=== PATIENT | female | born 1955 | race Caucasian/White ===

== ENCOUNTER 2016-04-15 08:11 | Emergency (ER) | payer OTHER ==
[~2016-04-15] VITALS: Ht 172.7 cm; Wt 70.5 kg
[~2016-04-15 08:11] MED LIST: Aspirin PO; METO25TA3 PO; MULT-82 PO
[2016-04-15 08:13] VITALS: BP 152/92; PULSE 62; RESP 14; O2SAT 100
--- NOTE | 2016-04-15 08:23 | ED.REPORT ---
HPI-Chest Pain 40 and Over Date of Service Apr 15, 2016 ED Provider: Jose Hensley DO The patient is a 61 year old female with history of stress-induced cardiomyopathy, coronary artery disease, NSTEMI, who presents to the emergency department complaining of chest pressure that began earlier this morning. She took her metoprolol with her breakfast at 0630 and then later developed chest pressure. The pain radiated through to her back and into her left shoulder. The pain improved and then within 30 minutes the pain started again. She has also noticed belching and anxiety. Her symptoms are not exacerbated with exertion. She had similar symptoms in the past, was hospitalized for 4 days, and discharged home on Metoprolol. 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 Nursing Notes Stated Complaint: CHEST PAIN PRESSURE Chief Complaint: Chest Pain Nursing Notes Reviewed: Yes Allergies: Coded Allergies: bee venom (honey bee) (Unverified Allergy, Severe, Anaphylaxis, 09/07/14) erythromycin base (Unverified Allergy, Severe, toxic bowel syndrome, ) cocoa (Unverified Allergy, Intermediate, Hives, 09/07/14) epinephrine (Unverified Allergy, Intermediate, "the doctor told me it would make me sick", 09/07/14) possibly the novocaine ingredient that causes hives and amnesia procaine (Unverified Allergy, Intermediate, hives, amnesia, 09/07/14) vasopressin (Unverified Allergy, Intermediate, Hives, amnesia, 09/07/14) Penicillins (Verified Allergy, Mild, 09/07/14) azithromycin (Verified Allergy, Mild, 07/18/14) sulfamethoxazole (Verified Allergy, Mild, 09/07/14) trimethoprim (Verified Allergy, Mild, 09/07/14) Scheduled ([Aspirin]) 81 MG TAB.CHEW 81 MG PO DAILY Metoprolol Succinate ER (Toprol XL) 25 Mg Tablet.er 25 MG PO BID Multivit with Calcium,Iron,Min (Multiple Vitamins For Women) 1 Each Tablet 1 EACH PO DAILY General Time Seen by MD: 08:22 Chief Complaint Chest pain Hx Obtained From: Patient Arrived By: Walk-in Sudden in Onset?: Yes Onset Occurred: 1 - 4 hours ago Symptom Duration: Since onset Location: : Substernal Quality: Painful, Pressure Radiation: : Back: Shoulder left Migration/Movement: Reports: None Severity: Current: Moderate Severity: Maximum: Moderate Recent Healthcare: No recent doctor visit, No recent hospitalization Similar Sx Previous: Yes Past Medical History Past Medical History History of stress-induced cardiomyopathy, coronary artery disease, NSTEMI, Past Surgical History 1. Left meniscal surgery on her left knee when she was 17 years old. 2. Hysterectomy 20 years ago. 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 Alcohol Use: Denies alcohol use Drug Use: Denies drug use Other Social History: , Local resident Ambulatory Status Independent Review of Systems Respiratory: Denies: Dyspnea on exertion Cardiovascular: Reports: Chest pain Musculoskeletal: Reports: Back pain, Joint pain Psychiatric: Reports: Anxiety, Stress Complete sys rev & neg: except as marked. Physical Exam Initial Vital Signs Vital Signs (First) Date Time Temp Pulse Resp B/P Pulse Ox O2 Delivery O2 Flow Rate FiO2 04/15/16 08:13 37.2 62 14 152/92 100 Room Air Initial VS: Reviewed Head / Eyes: Atraumatic, Normocephalic, PERRL ENT: Mucous membranes moist, Conjunctiva normal, No scleral icterus Neck: Supple, Non-tender, Full range of motion Extremities: Vascular intact, Neuro intact, No swelling, No tenderness Skin: Warm, Dry, No cyanosis Neurologic: Alert, Oriented, Nonfocal Psychiatric: Mood/affect normal, Behavior normal, Normal thought content General/Constitutional: Awake, Alert, No acute distress, Well appearing Behavior: Positive: Anxious Respiratory / Chest: Atraumatic, Breath sounds NL, Breath sounds = bilat, No respiratory distress, No rales, No rhonchi, No wheezing, No stridor, No chest tenderness Cardiovascular: Heart rate NL, Regular rhythm, Heart sounds NL, No murmurs, Peripheral circulation NL, Pulses = bilaterally, No gross BP differential Abdomen: Atraumatic, Soft, Non-tender, McBurney's non-tender, No guarding, No rebound, BS normoactive, No distention, No hernia, No palpable mass Interpretation & Diagnostics Lab Results Interpretation Result Diagram: 04/15/16 0820 04/15/16 0820 Test 04/15/16 08:20 04/15/16 10:18 White Blood Count 5.0th/mm3 (3.8-10.1) Red Blood Count 4.89mil/mm3 (3.90-5.20) Hemoglobin 14.0g/dL (12.0-15.6) Hematocrit 42.5% (35.0-46.0) Mean Corpuscular Volume 86.9fL (81-100) Mean Corpuscular Hemoglobin 28.6pg (27.0-35.0) Mean Corpuscular Hemoglobin Concent 32.9% (32.0-37.0) Red Cell Distribution Width 13.1% (12.3-15.4) Platelet Count 239bil/L (150-400) Neutrophils (%) (Auto) 61.4% (40-74) Lymphocytes (%) (Auto) 28.8% (14-46) Monocytes (%) (Auto) 6.8% (4-12) Eosinophils (%) (Auto) 2.6% (0-5) Basophils (%) (Auto) 0.2% (0-3) Sodium Level 139mEq/L (134-144) Potassium Level 4.0mEq/L (3.5-5.2) Chloride Level 102mEq/L (97-108) Carbon Dioxide Level 25mmol/L (18-29) Blood Urea Nitrogen 15mg/dL (8-27) Creatinine 0.70mg/dL (0.57-1.00) Estimat Glomerular Filtration Rate 121mL/min (>59) Glucose Level 126mg/dL (60-99) Calcium Level 8.9mg/dL (8.5-10.1) Magnesium Level 1.9mg/dL (1.6-2.6) Total Bilirubin 0.3mg/dL (0.0-1.2) Aspartate Amino Transf (AST/SGOT) 17U/L (0-50) Alanine Aminotransferase (ALT/SGPT) 10U/L (0-32) Alkaline Phosphatase 73U/L (25-165) Total Protein 7.4g/dL (6.4-8.4) Albumin 4.2g/dL (3.4-5.0) Troponin T < 0.010ug/L (0.0-0.011) ECG Interpretation ECG Interpretation: Sinus rhythm with a rate of 59 Probable LVH Time: 08:29 Interpreted by: ED physician ECG Interpretation: Sinus bradycardia with a rate of 46 LVH Time: 11:08 Interpreted by: ED physician X-Ray Chest Interpretation Chest Xray Interpretation: IMPRESSION: No acute process. Dictated by: Monster Powell M.D. on 04/15/2016 at 8:43 Interpretation / Wet Read by: Interpret - Radiologist Re-Eval/Medical Decision Med Decision/Clinical Course EKGs and serial troponins unremarkable, pain resolved. This does not seem to be acute TX. Patient feeling better. She is reassured by the workup. Will follow up with cardiology or return to the ER with recurrent symptoms. Source of Hx: Old records Time of Eval: 09:31 Re-Evaluation/Progress Note: Rechecked the patient. Discussed plan for repeat troponin. Time of Eval: 11:22 Re-Evaluation/Progress Note: Discussed repeat troponin results, diagnosis, and plan for discharge. All questions were addressed. Counseled Regarding: Diagnosis, Lab results, Need for follow-up, When/why to return to ED Discharge & Departure Primary Impression: Chest pain Chest pain type: unspecified Qualified Code: R07.9 - Chest pain, unspecified Disposition: Home Discharge Condition All VS Reviewed: Yes Condition: Stable Additional Instructions: Thank you for entrusting us with your care today. Your labs, EKG, and chest x- ray today are reassuring. There is no sign of a heart attack or pneumonia. You should followup with your regular doctor in the next few days for re- evaluation. Return to the emergency department for any new or concerning symptoms, Referrals: Monika St (PCP) Scribe Attestation Portions of this note were transcribed by Angelina Miller. I, Dr. Hensley personally performed the history, physical exam and medical decision-making; I reviewed and confirmed the accuracy of the information in the transcribed note. Signed by: Mirna Sullivan, 04/15/2016 at 1135. copies to: Monika St Timothy S DO Apr 15, 2016 08:23 Angelina Miller Apr 15, 2016 08:30
[2016-04-15 08:26] VITALS: BP 162/88; PULSE 60; RESP 21; O2SAT 100
[2016-04-15 08:33] LABS: BASOPHILS % (AUTO) 0.2 % (0-3); EOSINOPHILS % (AUTO) 2.6 % (0-5); MONOCYTES % (AUTO) 6.8 % (4-12); Mean Corpuscular Hemoglobin 28.6 pg (27.0-35.0); Mean Corpuscular Volume 86.9 fL (81-100); NEUTROPHILS % (AUTO) 61.4 % (40-74); Platelet Count 239 bil/L (150-400)
--- NOTE | 2016-04-15 08:45 | DRSVH ---
PROCEDURE: X-RAY CHEST ONE VIEW, PORTABLE ([id number]) INDICATIONS: CHEST PAIN TECHNIQUE: One view of the chest was acquired. COMPARISON: [facility], , CHEST 1VW (PORTABLE), 09/07/2014, 7:47. FINDINGS: Surgical changes and devices: None. Lungs and pleura: No pleural effusions or pneumothorax. Lungs are clear. Mediastinum: Mediastinal contours appear normal. Heart size is normal. Bones and chest wall: No suspicious bony lesions. Overlying soft tissues appear unremarkable. IMPRESSION: No acute process. Dictated by: Monster Powell M.D. on 04/15/2016 at 8:43 Approved by: Monster Powell M.D. on 04/15/2016 at 8:43
[2016-04-15] MEDS ORDERED: Alum-Mag Hydrox-Simeth 30 mL Suspension PO ONE (08:50)
[2016-04-15 09:11] LABS: Magnesium 1.9 mg/dL (1.6-2.6); TROPONIN T < 0.010 ug/L (0.0-0.011)
[2016-04-15 09:27] VITALS: BP 154/92; PULSE 52; RESP 19
[2016-04-15 12:06] VITALS: BP 115/65; PULSE 55; RESP 16; O2SAT 98
== END 2016-04-15 11:30 | disposition home or self-care (01) ==
LOC: SED 08:11
DX: R07.89 Other chest pain (principal); F41.9 Anxiety disorder, unspecified; R14.2 Eructation; I25.10 Atherosclerotic heart disease of native coronary artery without angina pectoris; I51.81 Takotsubo syndrome; I25.2 Old myocardial infarction; Z79.82 Long term (current) use of aspirin; Z88.0 Allergy status to penicillin; Z88.1 Allergy status to other antibiotic agents; Z88.8 Allergy status to other drugs, medicaments and biological substances; Z91.030 Bee allergy status; Z91.02 Food additives allergy status

== ENCOUNTER 2016-08-10 01:48 | Emergency (ER) | payer OTHER ==
[~2016-08-10] VITALS: Ht 172.7 cm; Wt 68.2 kg
[2016-08-10 01:50] VITALS: BP 136/89; PULSE 75; RESP 18; O2SAT 95
--- NOTE | 2016-08-10 02:08 | ED.REPORT ---
HPI-General Illness Date of Service August 10, 2016 ED Provider: Dr. Josue Pt is a 61 year old female who presents to the ED with concerns for a fever, severe diarrhea and coughing that started several says ago. Pt reports that she noticed this all beginning after she was exposed to barbecue smoke. She states a multitude of complaints consisting of diarrhea, cough, headache, dizziness, sneezing and fever. She has been taking DayQuil and Tylenol without any alleviation of her symptoms. She denies any chest pain, shortness of breath or history of a similar presentation. Nursing Notes Stated Complaint: FEVER Chief Complaint: Respiratory Complaints Nursing Notes Reviewed: Yes Allergies: Coded Allergies: erythromycin base (Unverified Allergy, Severe, toxic bowel syndrome, ) venom-honey bee (Unverified Allergy, Severe, Anaphylaxis, 09/07/14) cocoa (Unverified Allergy, Intermediate, Hives, 09/07/14) epinephrine (Unverified Allergy, Intermediate, "the doctor told me it would make me sick", 09/07/14) possibly the novocaine ingredient that causes hives and amnesia procaine (Unverified Allergy, Intermediate, hives, amnesia, 09/07/14) vasopressin (Unverified Allergy, Intermediate, Hives, amnesia, 09/07/14) Penicillins (Verified Allergy, Mild, 09/07/14) azithromycin (Verified Allergy, Mild, 07/18/14) sulfamethoxazole (Verified Allergy, Mild, 09/07/14) trimethoprim (Verified Allergy, Mild, 09/07/14) Uncoded Allergies: PENICILLIN (Allergy, Unknown, 08/10/16) Scheduled ([Aspirin]) 81 MG TAB.CHEW 81 MG PO DAILY Metoprolol Succinate ER (Toprol XL) 25 Mg Tablet.er 25 MG PO BID Multivit with Calcium,Iron,Min (Multiple Vitamins For Women) 1 Each Tablet 1 EACH PO DAILY Prednisone (PredniSONE) 20 Mg Tablet 60 MG PO DAILY General Time Seen by MD: 02:08 Chief Complaint Abdominal pain, Cough Hx Obtained From: Patient Arrived By: Walk-in Sudden in Onset?: Yes Onset Occurred: 3 days ago Symptom Duration: Since onset Severity: Current: Mild Severity: Maximum: Mild Similar Sx Previous: Yes Past Medical History Past Medical History History of stress-induced cardiomyopathy, coronary artery disease, NSTEMI, Past Surgical History 1. Left meniscal surgery on her left knee when she was 17 years old. 2. Hysterectomy 20 years ago. 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 Alcohol Use: Denies alcohol use Drug Use: Denies drug use Other Social History: , Local resident Ambulatory Status Independent Review of Systems Full Review of Systems Constitutional: Reports: Fever, Malaise, Weakness - generalized, Denies: Chills Respiratory: Reports: Non-productive cough, Denies: Shortness of breath, Wheezing Cardiovascular: Denies: Chest pain, Syncope GI: Reports: Abdominal pain, Diarrhea, Nausea, Denies: Constipation, Vomiting Female: Denies: Dysuria, Urinary frequency, Urinary urgency Musculoskeletal: Denies: Back pain, Extremity pain, Neck pain Skin: Denies Diaphoresis, Denies Rash Neurologic: Reports: Dizziness, Denies: Change LOC, Headache, Syncope, Weakness Complete sys rev & neg: except as marked. Physical Exam Vital Signs Vital Signs Date Time Temp Pulse Resp B/P Pulse Ox O2 Delivery O2 Flow Rate FiO2 08/10/16 05:19 78 26 121/65 95 Room Air 08/10/16 02:35 105 22 97 Room Air 08/10/16 01:50 37.7 75 18 136/89 95 Room Air Initial VS: Reviewed Head / Eyes: Atraumatic, Normocephalic, PERRL Neck: Supple, Non-tender, Full range of motion Cardiovascular: Regular rate & rhythm, Heart sounds normal, Intact distal pulses Skin: Warm, Dry, No cyanosis General/Constitutional: Awake, Alert Appearance / Presentation: Positive: Uncomfortable ENT: Atraumatic, Airway patent Mouth: Positive: Mucous membranes dry Respiratory / Chest: Atraumatic Wheezing heard bilaterally Harsh expiratory rhonchi with deep breathing Bronchospastic cough Abdomen: Atraumatic, Soft, Non-tender, No guarding, No rebound, BS normoactive Interpretation & Diagnostics Lab Results Interpretation Result Diagram: 08/10/16 0243 08/10/16 0243 Test 08/10/16 02:43 White Blood Count 3.2th/mm3 (3.8-10.1) Red Blood Count 4.85mil/mm3 (3.90-5.20) Hemoglobin 13.9g/dL (12.0-15.6) Hematocrit 41.3% (35.0-46.0) Mean Corpuscular Volume 85.2fL (81-100) Mean Corpuscular Hemoglobin 28.7pg (27.0-35.0) Mean Corpuscular Hemoglobin Concent 33.7% (32.0-37.0) Red Cell Distribution Width 13.0% (12.3-15.4) Platelet Count 183bil/L (150-400) Neutrophils (%) (Auto) 70.1% (40-74) Lymphocytes (%) (Auto) 19.4% (14-46) Monocytes (%) (Auto) 8.9% (4-12) Eosinophils (%) (Auto) 0.3% (0-5) Basophils (%) (Auto) 1.3% (0-3) Prothrombin Time 10.9sec (8.1-12.5) Prothromb Time International Ratio 1.02ratio Sodium Level 137mEq/L (134-144) Potassium Level 4.2mEq/L (3.5-5.2) Chloride Level 98mEq/L (97-108) Carbon Dioxide Level 24mmol/L (18-29) Blood Urea Nitrogen 11mg/dL (8-27) Creatinine 0.75mg/dL (0.57-1.00) Estimat Glomerular Filtration Rate 112mL/min (>59) Glucose Level 99mg/dL (60-99) Calcium Level 8.9mg/dL (8.5-10.1) Magnesium Level 1.8mg/dL (1.6-2.6) Total Bilirubin 0.3mg/dL (0.0-1.2) Aspartate Amino Transf (AST/SGOT) 21U/L (0-50) Alanine Aminotransferase (ALT/SGPT) 11U/L (0-32) Alkaline Phosphatase 71U/L (25-165) Total Protein 7.4g/dL (6.4-8.4) Albumin 4.1g/dL (3.4-5.0) Lipase 43U/L (13-60) Hold Bui Top Tube Received (Received) X-Ray Chest Interpretation Chest Xray Interpretation: Negative CXR View: Portable Interpretation / Wet Read by: Wet read ED physician Re-Eval/Medical Decision Med Decision/Clinical Course 61-year-old with reactive airways disease, presents with cough after being exposed to smoke. She is improved with nebulizers and steroids here, and will go home with a course of oral steroids and a puffer spacer for home use. Incidental to this is some semi-chronic diarrhea, which has not been evaluated. No blood involved. Stool obtained for PCR which will be available tomorrow. Discharged in stable condition with clear fluid diet, avoidance of fat signal, and will evaluate possible treatment options in light of her PCR findings. Source of Hx: Old records Time of Eval: 04:32 Re-Evaluation/Progress Note: Pt is rechecked, she appears to be resting comfortably. She is informed of her labs and imaging results and the plan to discharge her at this time. She understands and agrees, all questions are addressed. Counseled Regarding: Diagnosis, Lab results, Need for follow-up, When/why to return to ED Discharge & Departure Shift Change Sign-Out Response to Therapy: Improved Primary Impression: Reactive airway disease that is not asthma Additional Impression: Acute infectious diarrhea Disposition: Home Discharge Condition All VS Reviewed: Yes Condition: Stable Patient Instructions: Acute Diarrhea (ED), Reactive Airways Disease (ED) Additional Instructions: Drink plenty of electrolyte replacement solutions such as Pedialyte, Gatorade or Powerade. Pedialyte is the preferred solution. Begin with a light liquid diet and then add starches back as you tolerate. Avoid fatty foods, meats and milk for a few days and only had items back as tolerated. Your stool results will be available later today. They will be available to your doctor in the office. Prednisone three tabs daily for five days Albuterol two puffs every four hours with spacer as needed for cough and wheeze. Follow-up with your doctor early this week. Return here if any immediate issues over the weekend. Referrals: Monika St (PCP) Mirna Attestation Portions of this note were transcribed by Zuleika Cannon. I, Dr. Josue personally performed the history, physical exam and medical decision-making; I reviewed and confirmed the accuracy of the information in the transcribed note. Signed by: Mirna Arevalo, 08/10/2016 04:43 copies to: Monika St Christopher W MD August 10, 2016 02:08 ADELA CANNON August 10, 2016 02:15
[2016-08-10] MEDS ORDERED: 0.9% Sodium Chloride 1,000 ML IV ONE ×2 (02:13→04:35)
[2016-08-10] MEDS ORDERED: Pantoprazole 4 mg/mL 10 mL Inj IVPUSH ONE (02:15)
[2016-08-10] MEDS ORDERED: Albuterol 2.5 mg/3 mL Inhalation Solution NEB ONE (02:15)
[2016-08-10] MEDS ORDERED: Ondansetron 2 mg/mL 2 mL Inj IVPUSH ONE (02:15)
[2016-08-10 02:35] VITALS: PULSE 105; RESP 22; O2SAT 97
[2016-08-10 03:15] LABS: INR 1.02 ratio
[2016-08-10 03:16] LABS: BASOPHILS % (AUTO) 1.3 % (0-3); EOSINOPHILS % (AUTO) 0.3 % (0-5); MONOCYTES % (AUTO) 8.9 % (4-12); Mean Corpuscular Hemoglobin 28.7 pg (27.0-35.0); Mean Corpuscular Volume 85.2 fL (81-100); NEUTROPHILS % (AUTO) 70.1 % (40-74); Platelet Count 183 bil/L (150-400)
[2016-08-10 03:26] LABS: Magnesium 1.8 mg/dL (1.6-2.6)
[2016-08-10] MEDS ORDERED: Dexamethasone 20 mg/2 mL Oral Solution PO ONE (03:30)
[2016-08-10] MEDS ORDERED: Albuterol HFA 200 Puff Inhaler (Vent Pts Only) INHALATION PRN (04:35)
[2016-08-10] MEDS ORDERED: PRE20 PO (04:51)
[2016-08-10 05:19] VITALS: BP 121/65; PULSE 78; RESP 26; O2SAT 95
--- NOTE | 2016-08-10 09:25 | DRSVH ---
PROCEDURE: X-RAY CHEST, TWO VIEWS ([id number]) INDICATIONS: cough 2 weeks TECHNIQUE: 2 views of the chest were acquired. COMPARISON: [facility], CR, XR CHEST 1VW (PORTABLE), 04/15/2016, 8:24. FINDINGS: Surgical changes and devices: None. Lungs and pleura: No pleural effusions or pneumothorax. Nodular opacity noted in the right lower paola g represent nipple shadow or true parenchymal nodule. Mediastinum: Mediastinal contours are normal. Heart size is normal. Bones and chest wall: No suspicious bony abnormalities. Soft tissues appear unremarkable. IMPRESSION: 1. No acute cardiopulmonary disease process. 2. Nipple shadow versus right lung nodule. Recommend a CT scan of the chest when clinically feasible for further evaluation. Dictated by: Heidy Howard MD, PhD on 08/10/2016 at 9:22 Approved by: Heidy Howard MD, PhD on 08/10/2016 at 9:23
== END 2016-08-10 04:53 | disposition home or self-care (01) ==
LOC: SED 01:48
DX: J98.9 Respiratory disorder, unspecified (principal); A09 Infectious gastroenteritis and colitis, unspecified; I25.2 Old myocardial infarction; I25.10 Atherosclerotic heart disease of native coronary artery without angina pectoris; Z79.82 Long term (current) use of aspirin; Z88.0 Allergy status to penicillin; Z88.1 Allergy status to other antibiotic agents; Z88.4 Allergy status to anesthetic agent; Z88.2 Allergy status to sulfonamides; Z88.8 Allergy status to other drugs, medicaments and biological substances; Z91.018 Allergy to other foods; Z91.030 Bee allergy status
CPT/HCPCS: 36415; 71020; 80053; 83690; 83735; 85025; 85610; 87040; 87507; 94640; 94664; 96361; 96374; 96375; 99285; J2405; J7030; J7613